=== PATIENT | female | born 1995 | race Caucasian/White ===

== ENCOUNTER 2017-11-19 23:08 | Emergency (ER) | payer OTHER ==
[~2017-11-19] VITALS: Ht 160 cm; Wt 72.6 kg
[~2017-11-19 23:08] MED LIST: ANUSOL-HC30 G2 RC; MOBIC15 MG PO
[2017-11-20] MEDS ORDERED: INTESTINEX680 M1 PO (06:11)
[2017-11-20] MEDS ORDERED: CLINDAMYCIN HC300 MG PO (06:11)
[2017-11-20] MEDS ORDERED: KETO10TA2 PO (06:11)
== END 2017-11-20 06:24 | disposition home or self-care (01) ==
LOC: ER 23:08
DX: L02.415 Cutaneous abscess of right lower limb (principal)

== ENCOUNTER 2019-01-27 23:40 | Emergency (ER) | payer OTHER ==
[~2019-01-27] VITALS: Ht 160 cm; Wt 68.9 kg
[~2019-01-27 23:40] MED LIST changes: +CLINDAMYCIN HC300 MG PO; +INTESTINEX680 M1 PO; +KETO10TA2 PO
== END 2019-01-28 02:46 | disposition home or self-care (01) ==
LOC: ER 23:40
DX: R21 Rash and other nonspecific skin eruption (principal)